=== PATIENT | female | born 1990 | race American Indian/Alaskan Native ===

== ENCOUNTER 2017-07-19 01:12 | Emergency (ER) | payer BC, MEDICAID ==
[2017-07-19 02:37] LABS: Basophils % (Auto) 0.6 % (0.0-1.8); Eosinophils # (Auto) 0.2 K/mm3 (0.0-0.4); Eosinophils % (Auto) 2.7 % (0.0-4.3); Hematocrit 30.1 % (30.3-42.9); Hemoglobin 9.2 gm/dl (10.1-14.3); Lymphocytes # (Auto) 2.1 K/mm3 (1.2-5.4); Lymphocytes % (Auto) 32.8 % (13.4-35.0); Mean Corpuscular HGB Conc 31 % (30-34); Monocytes # (Auto) 0.5 K/mm3 (0.0-0.8); Monocytes % (Auto) 7.7 % (0.0-7.3); Platelet Count 373 K/mm3 (140-440); Red Blood Count 4.59 M/mm3 (3.65-5.03); Red Cell Distribution Width 18.7 % (13.2-15.2)
[2017-07-19 02:38] LABS: Bilirubin,Urine NEG (Negative); Blood,Urine NEG (Negative); Color,Urine Yellow (Yellow); Mucus,Urine FEW /HPF; Urobilinogen,Urine < 2.0 mg/dL (<2.0)
[2017-07-19 02:39] LABS: Mean Corpuscular Hemoglobin 20 pg (28-32); Mean Corpuscular Volume 66 fl (79-97)
--- NOTE | 2017-07-19 04:40 | Emergency Department Report ---
ED HPI - General Chief complaint: Vaginal Bleeding Stated complaint: MISCARRIAGE, UTI Time Seen by Provider: 07/19/17 04:23 Source: patient Mode of arrival: Ambulatory Limitations: No Limitations - History of Present Illness Initial comments: This is a 26-year-old female nontoxic, well nourished in appearance, no acute signs of distress presents to the ED with c/o of dysuria and vaginal bleeding x1 episode. Patient stated that 3 days ago she passed a clot one time. Patient currently denies any vaginal bleeding. Patient stated otherwise vaginal bleeding has stopped. Patient denies any hematuria, back pain, fever, chills, nausea, vomiting, chest pain, shortness of breath, abdominal pain, numbness or tingling. Patient denies any radiation of pain. Denies any allergies or significant past medical history. MD Complaint: vaginal discharge, other (dysuria) -: days(s) (3) Radiation: none Severity: mild Severity scale (0 -10): 8 Quality: burning Consistency: constant Improves with: none Worsens with: other (urination) Associated symptoms: dysuria. denies: nausea/vomiting, vaginal bleeding, vaginal discharge, abdominal pain, headache, vision changes, malaise, dysparuenia, rash, seizure, shortness of breath, syncope, weakness Vaginal bleeding: none :: Yes Pre- care: none - Related Data : 4 Para: 7 Previous Rx's Medication Instructions Recorded Last Taken Type Acetaminophen 500 mg PO Q6H PRN #30 tablet 07/19/17 Unknown Rx Nitrofurantoin [place]/M-Cryst 100 mg PO Q12HR #14 capsule 07/19/17 Unknown Rx [Macrobid CAP] Allergies Allergy/AdvReac Type Severity Reaction Status Date / Time No Known Allergies Allergy Unverified 12/21/14 13:52 ED Review of Systems ROS: Stated complaint: MISCARRIAGE, UTI Other details as noted in HPI Constitutional: denies: chills, fever Eyes: denies: eye pain, eye discharge, vision change ENT: denies: ear pain, throat pain Respiratory: denies: cough, shortness of breath, wheezing Cardiovascular: denies: chest pain, palpitations Endocrine: no symptoms reported Gastrointestinal: denies: abdominal pain, nausea, diarrhea Genitourinary: dysuria. denies: urgency, discharge Musculoskeletal: denies: back pain, joint swelling, arthralgia Skin: denies: rash, lesions Neurological: denies: headache, weakness, paresthesias Psychiatric: denies: anxiety, depression Hematological/Lymphatic: denies: easy bleeding, easy bruising ED Past Medical Hx - Past Medical History Previous Medical History?: No - Surgical History Past Surgical History?: No Hx Breast Surgery: No - Social History Smoking Status: Current Every Day Smoker Substance Use Type: Marijuana - Medications Home Medications: Home Medications Medication Instructions Recorded Confirmed Last Taken Type Acetaminophen 500 mg PO Q6H PRN #30 tablet 07/19/17 Unknown Rx Nitrofurantoin [place]/M-Cryst 100 mg PO Q12HR #14 capsule 07/19/17 Unknown Rx [Macrobid CAP] ED Physical Exam - General Limitations: No Limitations General appearance: alert, in no apparent distress - Head Head exam: Present: atraumatic, normocephalic - Eye Eye exam: Present: normal appearance - ENT ENT exam: Present: normal exam, mucous membranes moist - Neck Neck exam: Present: normal inspection, full ROM. Absent: tenderness, meningismus, lymphadenopathy - Respiratory Respiratory exam: Present: normal lung sounds bilaterally. Absent: respiratory distress, wheezes, rales, rhonchi, stridor, chest wall tenderness, accessory muscle use, decreased breath sounds, prolonged expiratory - Cardiovascular Cardiovascular Exam: Present: regular rate, normal rhythm, normal heart sounds. Absent: irregular rhythm, systolic murmur, diastolic murmur, rubs, gallop - GI/Abdominal GI/Abdominal exam: Present: soft, normal bowel sounds. Absent: distended, tenderness, guarding, rebound, rigid, diminished bowel sounds - Rectal Rectal exam: Present: deferred - Extremities Exam Extremities exam: Present: normal inspection, full ROM, normal capillary refill - Back Exam Back exam: Present: normal inspection, full ROM. Absent: tenderness, CVA tenderness (R), CVA tenderness (L), muscle spasm, paraspinal tenderness, vertebral tenderness, rash noted - Neurological Exam Neurological exam: Present: alert, oriented X3, normal gait - Psychiatric Psychiatric exam: Present: normal affect, normal mood - Skin Skin exam: Present: warm, dry, intact, normal color. Absent: rash ED Course Vital Signs 07/19/17 01:20 Temperature 98.1 F Pulse Rate 94 H Respiratory 20 Rate Blood Pressure 137/94 O2 Sat by Pulse 100 Oximetry - Reevaluation(s) Reevaluation #1: 07/19/17 04:39 Patient is speaking in full sentences with no signs of distress noted. ED Medical Decision Making - Lab Data Result diagrams: 07/19/17 02:02 - Medical Decision Making This is a 26-year-old female that presents with UTI symptoms and . Patient is stable was examined by me. Today currently the patient denies any vaginal bleeding. Urine obtained. Due to patient's symptoms only treat patient patient empirically with Macrobid. Urine culture is pending. OB ultrasound and transvaginal obtain a dictated by the radiologist with 2 live IUP disease. Patient was notified of the ultrasound report with no pus noted by the patient. Patient is A+ blood type. Patient was referred to Follow-up with a [facility] in 3-5 days or if symptoms worsen and continue return to emergency room as soon as possible. At time of discharge, the patient does not seem toxic or ill in appearance. No acute signs of distress noted. Patient agrees to discharge treatment plan of care. No further questions noted by the patient. Critical care attestation.: If time is entered above; I have spent that time in minutes in the direct care of this critically ill patient, excluding procedure time. ED Disposition Clinical Impression: UTI (urinary tract infection) Qualifiers: Urinary tract infection type: site unspecified Hematuria presence: without hematuria Qualified Code(s): N39.0 - Urinary tract infection, site not specified Qualifiers: Weeks of gestation: 8 weeks Qualified Code(s): Z3A.08 - 8 weeks gestation of Disposition: DC-01 TO HOME OR SELFCARE Is pt being admited?: No Does the pt Need Aspirin: No Condition: Stable Instructions: Nitrofurantoin Combination (By mouth), (ED), Urinary Tract Infection in Women (ED) Additional Instructions: Follow-up with a [facility] in 3-5 days or if symptoms worsen and continue return to emergency room as soon as possible. Prescriptions: Acetaminophen 500 mg PO Q6H PRN #30 tablet PRN Reason: Pain Nitrofurantoin [place]/M-Cryst [Macrobid CAP] 100 mg PO Q12HR #14 capsule Referrals: PRIMARY CARE, [Primary Care Provider] - 3-5 Days BRAYAN BAINS MD [Staff Physician] - 3-5 Days [facility] [Provider Group] - 3-5 Days [facility] [Outside] - 3-5 Days [facility] [Outside] - 3-5 Days Forms: Work/School Release Form(ED)
--- NOTE | 2017-07-19 05:12 | Ultrasound Report ---
FINAL REPORT EXAM: US OB < = 14 WEEKS FETUS HISTORY: pos hcg and vaginal bleeding COMPARISONS: None. FINDINGS: Transabdominal grayscale, color Doppler and M-mode first-trimester ultrasound Living twin . Diamniotic, dichorionic morphology is suggested. Twin A recorded cardiac activity is 156 beats per minute. [place]-rump length is approximately 18 millimeters, and estimated gestational age is 8 weeks 2 days with corresponding delivery date of 02/26/2018. Small perigestational hemorrhage may be present involving less than 50 percent of the gestational sac surface area. Right ovarian probable corpus luteal cyst. Ovaries are otherwise sonographically unremarkable and measure 3.4 x 2 x 2.1 cm on the right and 3.4 x 2 x 2.3 cm on the left. IMPRESSION: Living twin . Twin a estimated gestational age is 8 weeks 2 days with corresponding delivery date of 02/26/2018. A small perigestational hemorrhage may be present involving less than 50 percent of the gestational sac surface area.
--- NOTE | 2017-07-19 05:15 | Ultrasound Report ---
FINAL REPORT EXAM: US OB < = 14 WK FETUS ADD GEST HISTORY: vaginal bleeding with positive COMPARISONS: None. FINDINGS: Transabdominal grayscale, color Doppler and M-mode first-trimester ultrasound Living twin . Diamniotic, dichorionic morphology is suggested. Twin B recorded cardiac activity is 156 beats per minute, which is shown on transvaginal ultrasound of the same date. [place]-rump length is approximately 20 millimeters, and estimated gestational age is 8 weeks 4 days with corresponding delivery date of 02/24/2018. Small perigestational hemorrhage may be present involving less than 50 percent of the gestational sac surface area. Right ovarian probable corpus luteal cyst. Ovaries are otherwise sonographically unremarkable and measure 3.4 x 2 x 2.1 cm on the right and 3.4 x 2 x 2.3 cm on the left. IMPRESSION: Living twin . Twin B estimated gestational age is 8 weeks 4 days with corresponding delivery date of 02/24/2018. A small perigestational hemorrhage may be present involving less than 50 percent of the gestational sac surface area.
--- NOTE | 2017-07-19 05:18 | Ultrasound Report ---
FINAL REPORT EXAM: US OB TRANSVAGINAL HISTORY: pos hcg and vaginal bleeding COMPARISONS: None. FINDINGS: Transvaginal grayscale, color Doppler and M-mode first-trimester ultrasound Living twin . Diamniotic, dichorionic morphology is suggested. Twin A and B recorded cardiac activity is 156 beats per minute. [place]-rump length of twin A is approximately 18 millimeters, and estimated gestational age is 8 weeks 2 days with corresponding delivery date of 02/26/2018. [place]-rump length of twin B is approximately 20 millimeters, and estimated gestational age is 8 weeks 4 days with corresponding delivery date of 02/24/2018. Small perigestational hemorrhage may be present involving less than 50 percent of the gestational sac surface area. Right ovarian probable 2.2 cm corpus luteal cyst. Ovaries are otherwise sonographically unremarkable and measure 3.3 x 1.8 x 2.5 cm on the right and 3.7 x 1.6 x 2 cm on the left. IMPRESSION: Living twin . Estimated gestational ages 8 weeks 2 days and 8 weeks 4 days, as detailed above. A small perigestational hemorrhage may be present involving less than 50 percent of the gestational sac surface area.
[2017-07-19 05:35] VITALS: BP 134/90
== END 2017-07-19 05:35 | disposition home or self-care (01) ==
LOC: ED 01:12
DX: O23.41 Unspecified infection of urinary tract in pregnancy, first trimester (principal); O99.331 Smoking (tobacco) complicating pregnancy, first trimester; Z3A.08 8 weeks gestation of pregnancy
CPT/HCPCS: 36415; 76801; 76802; 76817; 81001; 84702; 85025; 86850; 86900; 86901; 87086